=== PATIENT | female | born 1955 | race Caucasian/White ===

== ENCOUNTER 2019-08-23 10:42 | Emergency (ER) | payer OTHER ==
[~2019-08-23] VITALS: Ht 167.6 cm; Wt 81.8 kg
[2019-08-23] MEDS ORDERED: CALC-1038 PO (10:53)
[2019-08-23] MEDS ORDERED: [UNRECOGNIZED DRUG - CODE] PO (10:53)
[2019-08-23] MEDS ORDERED: CHOLESTEROL OFF PO (10:53)
[2019-08-23] MEDS ORDERED: TURM500C7 PO (10:53)
[2019-08-23] MEDS ORDERED: CYCL10 PO (10:53)
[2019-08-23] MEDS ORDERED: IBUPROFEN 600 MG TABLET PO ONE (11:30)
[2019-08-23] MEDS ORDERED: BUPIVACAINE 0.25%/EPI 1:200,000/PF 10 ML VIAL SQ ONE (11:30)
[2019-08-23] MEDS ORDERED: POVIDONE-IODINE 10% 120 ML SOLUTION TP ONE (11:30)
[2019-08-23] MEDS ORDERED: CLINDAMYCIN HCL 150 MG CAPSULE PO ONE (12:45)
[2019-08-23 13:57] VITALS: BP 124/90
== END 2019-08-23 14:03 | disposition home or self-care (01) ==
LOC: EMS 10:42
DX: N76.4 Abscess of vulva (principal); F17.210 Nicotine dependence, cigarettes, uncomplicated; Z79.899 Other long term (current) drug therapy; Z98.890 Other specified postprocedural states; Z88.2 Allergy status to sulfonamides; Z88.6 Allergy status to analgesic agent; Z88.5 Allergy status to narcotic agent
CPT/HCPCS: 56405; 99284; J3490

== ENCOUNTER 2019-08-26 10:29 | Emergency (ER) | payer OTHER ==
[~2019-08-26] VITALS: Ht 170.2 cm; Wt 75.0 kg
[~2019-08-26 10:29] MED LIST: CALC-1038 PO; CHOLESTEROL OFF PO; CYCL10 PO; TURM500C7 PO; [UNRECOGNIZED DRUG - CODE] PO
[2019-08-26] MEDS ORDERED: BECL10.6 IH (11:17)
[2019-08-26 12:58] VITALS: BP 145/80
== END 2019-08-26 12:59 | disposition home or self-care (01) ==
LOC: EMS 10:38
DX: Z48.00 Encounter for change or removal of nonsurgical wound dressing (principal); F17.210 Nicotine dependence, cigarettes, uncomplicated; Z88.6 Allergy status to analgesic agent; Z88.1 Allergy status to other antibiotic agents; Z88.5 Allergy status to narcotic agent; Z88.8 Allergy status to other drugs, medicaments and biological substances
CPT/HCPCS: 99406

== ENCOUNTER 2021-08-02 11:39 | Emergency (ER) | payer OTHER ==
[~2021-08-02] VITALS: Ht 170.2 cm; Wt 74.1 kg
[~2021-08-02 11:39] MED LIST changes: +BECL10.6 IH; -CALC-1038 PO; -CHOLESTEROL OFF PO; -CYCL10 PO; -TURM500C7 PO; -[UNRECOGNIZED DRUG - CODE] PO
[2021-08-02 11:43] VITALS: BP 146/81
== END 2021-08-02 15:27 | disposition home or self-care (01) ==
LOC: EMS 12:00
DX: J40 Bronchitis, not specified as acute or chronic (principal); M79.672 Pain in left foot; F17.210 Nicotine dependence, cigarettes, uncomplicated; Z88.2 Allergy status to sulfonamides; Z88.6 Allergy status to analgesic agent; Z88.5 Allergy status to narcotic agent
CPT/HCPCS: 99283; Z7502